=== PATIENT | male | born 1960 | race Caucasian/White ===

== ENCOUNTER 2023-02-06 08:48 | Outpatient (AMB) | payer MEDICARE, OTHER, MEDICAID, SELFPAY ==
--- NOTE | 2023-02-06 09:12 | MHC.OFFVIS ---
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 States pain has been present for many years and has increase since this past summer. No injury he can recall. States pain is in the middle of his neck. Patient has tried Tylenol with good relief. Denies numbness or tingling ,therapy or past neck injection. Allergies No Known Allergies Allergy (Verified 02/06/23 09:16) Medication List - Last Reconciled 02/06/23 by Rani Izquierdo MD allopurinol 300 mg PO DAILY amlodipine 10 mg PO DAILY famotidine mg PO lisinopril 40 mg PO DAILY varenicline mg PO HPI HPI Comments History of Present Illness Details Chronic neck pain at least 10 years. Told to have arthritis. No injections or surgery in the past. Would flare 2-3 weeks at a time, about 3 episodes per year. Last summer, had severe pain for several months. No inciting injuries. Posterior neck. Did not radiate. ER 12/15/22 presented with symptoms of being off balance and spasms. CT head normal. Electrolyte abnormality treated. Since then, he has not been off balance or spasming. At this point, has been better since 3 weeks ago. Wakes up with soreness, but not severe. Today 2/10. Worst at 5/10. Still non radicular. No numbness No weakness No bladder/bowel changes History of gout, on allopurinol and colchicine, affected by left big toe. Treatment done so far: Tylenol every morning. [facility] Medical History (Updated 02/06/23 @ 09:36 by Rani Izquierdo MD) Cervical spondylosis Chronic neck pain Social History (Updated 02/06/23 @ 09:17 by Deedee Hay [facility]) Current occupational status: retired and disabled Current occupation: rt hand Review of Systems Const All systems reviewed & are unremarkable except as noted in HPI and below Physical Exam Vital Signs: BMI result Body Mass Index 37.7 Constitutional: Patient appears to be in no acute distress, well nourished and well developed. Patient was appropriately conversant and oriented. Good historian. MSK: Inspection reveals appropriate head and neck positioning. No pain with palpation over the neck musculature. Cervical ROM was full. Spurling's sign negative. Bilateral shoulder, elbow and wrist ROM WNL. No ligamentous laxity or crepitance. No increased effusion. Strength is 5/5 in all muscle groups tested. No increased tone noted. Neurological: Neurologic examination of the upper and lower extremities was nonfocal with intact sensation, muscle stretch reflexes and without focal motor deficits . Fragoso?s negative bilaterally. Babinski was down going bilaterally. Clonus was negative. Gait is non-antalgic without loss of balance. Results Reviewed Results Reviewed: Cervical x-ray done at [facility] reported decreased disc height C5-6 C6-7, facet arthropathy, foraminal stenosis. I reviewed records from the following: PCP ER Assessment & Plan Assessment & Plan (1) Cervical spondylosis: Code(s): M47.812 - Spondylosis without myelopathy or radiculopathy, cervical region (2) Chronic neck pain: Code(s): M54.2 - Cervicalgia; G89.29 - Other chronic pain Plan Chronic recurrent neck pain. Most likely facet mediated. No signs of myelopathy or radiculopathy. Pain now is improved since the summer but he gets about 2-4 episodes per year. During those times, he may benefit from facet injections. Since I do not perform those, I would refer him to my former colleague Dr. Moreland, [facility] in [place]. Assessment and plan discussed with patient, and patient was agreeable. All questions were answered thoroughly. Rani Izquierdo MD, GENNY Board Certified, [place] [employer] and [employer] (ABPMR) Board Certified, [place] [employer] Electro[employer] (ABEM) Orders: Referrals Physiatry Referral G89.29 - Other chronic pain, M47.812 - Spondylosis without myelopathy or radiculopathy, cervical region, M54.2 - Cervicalgia Coding Level of Care Code New Pt Level 4 (16236) Diagnoses Cervical spondylosis M47.812 Chronic neck pain M54.2; G89.29
[2023-02-06 09:13] VITALS: BMI 37.7
== END 2023-02-06 09:45 | disposition home or self-care (01) ==
PROVIDERS: PCP Physician Assistant Medical; Visit Provider Physical Medicine & Rehabilitation
DX: M47.812 Spondylosis without myelopathy or radiculopathy, cervical region (principal); M54.2 Cervicalgia; G89.29 Other chronic pain
CPT/HCPCS: 99204

== ENCOUNTER → 2023-02-06 08:48 | Outpatient (BNVA) | payer MEDICARE, MEDICAID, SELFPAY | PROVIDERS: PCP Physician Assistant Medical; Visit Provider Physical Medicine & Rehabilitation | DX: M47.812 Spondylosis without myelopathy or radiculopathy, cervical region (principal); M54.2 Cervicalgia; G89.29 Other chronic pain | CPT/HCPCS: 99202 ==

== ENCOUNTER 2025-03-12 08:40 | Outpatient (REF) | payer OTHER, SELFPAY ==
[2025-03-12 15:02] LABS: Alanine Aminotransferase 23 U/L (0-40); Albumin Level 4.7 g/dL (3.5-5.0); Alkaline Phosphatase 85 U/L (39-117); Anion Gap 13 (12-20); Aspartate Amino Transferase 29 U/L (5-37); Blood Urea Nitrogen 21 mg/dL (9-16); Calcium 9.6 mg/dL (8.4-10.2); Carbon Dioxide 25 mmol/L (22-29); Chloride 109 mmol/L (96-108); Cholesterol 125 mg/dL (<200); Estimated Glomerular Filt Rate 56; HDL Cholesterol 31 mg/dL (>40); Potassium 4.3 mmol/L (3.3-5.1); Sodium 143 mmol/L (135-145); Total Protein 7.2 g/dL (6.5-8.0); Triglycerides 170 mg/dL (<150)
[2025-03-12 15:10] LABS: Prostate Specific Antigen 1.42 ng/mL (<0.05-4.0)
[2025-03-12 15:13] LABS: Microalbum/Creatinine Ratio Ur 68.4 ug/mg cr (<30)
== END 2025-03-12 08:41 | disposition home or self-care (01) ==
LOC: HO.HKASLDS 08:40
PROVIDERS: PCP Hospitalist; Visit Provider Hospitalist
DX: Z12.5 Encounter for screening for malignant neoplasm of prostate (principal); I10 Essential (primary) hypertension
CPT/HCPCS: 36415; 80053; 80061; 82043; 82570; 84153